=== PATIENT | male | born 1995 | race Two or more races ===

== ENCOUNTER 2021-08-24 18:47 | Emergency (ER) | payer MEDICAID, OTHER ==
[~2021-08-24] VITALS: Ht 175.3 cm; Wt 72.2 kg
[2021-08-24 21:33] VITALS: BP 138/84
== END 2021-08-24 21:36 | disposition home or self-care (01) ==
LOC: ER 18:49
DX: N43.3 Hydrocele, unspecified (principal)
CPT/HCPCS: 76870